=== PATIENT | female | born 1950 | race Caucasian/White ===

== ENCOUNTER 2016-08-10 13:43 | Inpatient (IN) | payer BC, MEDICARE ==
[~2016-08-10] VITALS: Ht 152.4 cm; Wt 111.6 kg
--- NOTE | 2016-08-10 14:55 | EKG ---
[facility] [address] [place] [address] Test Date: 2016-08-10 Test Time: 13:51:42 Pat Name: LEANNE MADISON Department: Room: Gender: F [employer] Mechanical: : [id number] Requested By: Saadia BECKER Order Number: [id number] Reading MD: Measurements Intervals [place] Rate: 103 P: 21 IL: 128 QRS: 23 QRSD: 84 T: 15 QT: 360 QTc: 474 Interpretive Statements SINUS TACHYCARDIA OTHERWISE NORMAL ECG RI6.01 No previous ECG available for comparison
[2016-08-10 15:09] LABS: BASO % 0 % (0-3); EOS % 1 % (0-3); HEMATOCRIT 37.9 % (36.0-47.0); HEMOGLOBIN 12.5 g/dL (12.0-15.5); LYMPH # 2.1 x10^3/uL (1.0-4.8); LYMPH % 26 % (24-48); MEAN CORPUSCULAR HEMOGLOBIN 29 pg (25-35); MEAN CORPUSCULAR HGB CONC 33 g/dL (31-37); MEAN CORPUSCULAR VOLUME 87 fL (79-100); MONO % 3 % (0-9); NEUT % 70 % (31-73); PLATELET COUNT 291 x10^3/uL (140-400); RED BLOOD COUNT 4.34 x10^6/uL (3.50-5.40); WHITE BLOOD COUNT 7.9 x10^3/uL (4.0-11.0)
[2016-08-10 15:42] LABS: CALCIUM 8.7 mg/dL (8.5-10.1); CREATININE 0.8 mg/dL (0.6-1.0); GFR 71.8; POTASSIUM 3.9 mmol/L (3.5-5.1)
--- NOTE | 2016-08-10 15:50 | RAD ---
INDICATION: chest pain COMPARISON: 12/08/2015 FINDINGS: 2 views of chest obtained. Degenerative changes of the spine. Cardiac silhouette is borderline in size. No focal airspace consolidation or edema. IMPRESSION: No definite focal airspace consolidation.
--- NOTE | 2016-08-10 16:16 | PHYS DOC ---
Past Medical History Additional Past Medical Histor: PreDiabetes Past Surgical History: Hysterectomy, Other Additional Past Surgical Histo: BILATERAL KNEE REPLACEMENT Smoking: Cigarettes Alcohol Use: Occasionally Drug Use: None Adult General Chief Complaint Chief Complaint: SHORTNESS OF BREATH HPI HPI Patient is a 66 year old female who presents with left central chest pain that radiates into her left jaw, face, and left upper extremity over the past 3 days. States she has been having this sensation intermittently over the past weeks. She notes fluctuations of intensity over the past 3 days, but is otherwise been constant. States she is supposed to get a heart catheterization tomorrow. She states she continues to have some difficulty breathing that has been worked up over the past multiple months; this symptom is unchanged from prior evaluations by her PCP. She denies back pain, orthopnea, leg pain or swelling, hemoptysis, cough, abdominal pain, nausea or vomiting, fever or chills. She denies numbness, tingling, weakness, dizziness. Review of Systems Review of Systems Constitutional: Denies fever or chills [] Eyes: Denies change in visual acuity, redness, or eye pain [] HENT: Denies nasal congestion or sore throat [] Respiratory: Denies cough [] Cardiovascular: No additional information not addressed in HPI [] GI: Denies abdominal pain, nausea, vomiting, bloody stools or diarrhea [] : Denies dysuria or hematuria [] Musculoskeletal: Denies back pain or joint pain [] Integument: Denies rash or skin lesions [] Neurologic: Denies headache, focal weakness or sensory changes [] Endocrine: Denies polyuria or polydipsia [] Allergies Allergies Allergies Coded Allergies Type Severity Reaction Last Updated Verified naproxen Allergy Mild Hives 08/03/16 Yes Physical Exam Physical Exam Constitutional: Well developed, well nourished, no acute distress, non-toxic appearance. [] HENT: Normocephalic, atraumatic, bilateral external ears normal, oropharynx moist, no oral exudates, nose normal. [] Eyes: PERRLA, EOMI. [] Neck: Normal range of motion, no tenderness, supple, no stridor. [] Cardiovascular:Heart rate regular rhythm [] Lungs & Thorax: Bilateral breath sounds clear to auscultation [] Abdomen: Bowel sounds normal, soft, no tenderness. [] Skin: Warm, dry, no erythema, no rash. [] Back: No tenderness, no CVA tenderness. [] Extremities: No tenderness, ROM intact, no edema. [] Neurologic: Alert and oriented X 3, normal motor function, normal sensory function, no focal deficits noted. [] Psychologic: Affect normal, judgement normal, mood normal. [] Current Patient Data Vital Signs Vital Signs Date Time Temp Pulse Resp B/P Pulse Ox O2 Delivery O2 Flow Rate FiO2 08/10/16 15:40 86 22 132/63 99 Room Air 08/10/16 13:45 97.8 97.8 Lab Values Laboratory Tests Test 08/10/16 15:05 White Blood Count 7.9x10^3/uL (4.0-11.0) Red Blood Count 4.34x10^6/uL (3.50-5.40) Hemoglobin 12.5g/dL (12.0-15.5) Hematocrit 37.9% (36.0-47.0) Mean Corpuscular Volume 87fL (79-100) Mean Corpuscular Hemoglobin 29pg (25-35) Mean Corpuscular Hemoglobin Concent 33g/dL (31-37) Red Cell Distribution Width 15.0% (11.5-14.5) H Platelet Count 291x10^3/uL (140-400) Neutrophils (%) (Auto) 70% (31-73) Lymphocytes (%) (Auto) 26% (24-48) Monocytes (%) (Auto) 3% (0-9) Eosinophils (%) (Auto) 1% (0-3) Basophils (%) (Auto) 0% (0-3) Neutrophils # (Auto) 5.5x10^3uL (1.8-7.7) Lymphocytes # (Auto) 2.1x10^3/uL (1.0-4.8) Monocytes # (Auto) 0.3x10^3/uL (0.0-1.1) Eosinophils # (Auto) 0.0x10^3/uL (0.0-0.7) Basophils # (Auto) 0.0x10^3/uL (0.0-0.2) Sodium Level 144mmol/L (136-145) Potassium Level 3.9mmol/L (3.5-5.1) Chloride Level 106mmol/L (98-107) Carbon Dioxide Level 29mmol/L (21-32) Anion Gap 9 (6-14) Blood Urea Nitrogen 11mg/dL (7-20) Creatinine 0.8mg/dL (0.6-1.0) Estimated GFR (Cockcroft-Gault) 71.8 Glucose Level 97mg/dL (70-99) Calcium Level 8.7mg/dL (8.5-10.1) Troponin I Quantitative < 0.017ng/mL (0.000-0.055) UD-Gzj-C-Type Natriuretic Peptide 81pg/mL (0-124) Laboratory Tests 08/10/16 15:05 Laboratory Tests 08/10/16 15:05 EKG EKG EKG as interpreted by me as sinus tachycardia, rate 103, no ST-T changes, MD 128 , QTc 474, no ectopy Radiology/Procedures Radiology/Procedures Chest xray as interpreted by me with no acute cardiopulmonary disease process Course & Med Decision Making Course & Med Decision Making Pertinent Labs and Imaging studies reviewed. (See chart for details) Workup is unremarkable. She does not feel comfortable going home with chest pain like this. I discussed case with Dr. Espinosa, who agrees with admission for ACS rule out. Dragon Disclaimer Dragon Disclaimer This electronic medical record was generated, in whole or in part, using a voice recognition dictation system. Departure Departure Impression: Primary Impression: Chest pain Additional Impression: Dyspnea on exertion Disposition: ADMITTED INPATIENT Condition: STABLE Referrals: BRANDON ESPINOSA MD (PCP) Scripts No Active Prescriptions or Reported Meds Problem Qualifiers Primary Impression: Chest pain Chest pain type: other chest pain Qualified Code: R07.89 - Other chest pain Saadia BECKER MD Aug 10, 2016 16:16
[2016-08-10] MEDS ORDERED: ONDANSETRON PF 4 MG/2 ML VIAL. IV PRN (16:30)
[2016-08-10] MEDS ORDERED: NITROGLYCERIN SUBLINGUAL 0.4 MG BOTTLE OF 25. SL PRN (16:30)
[2016-08-10] MEDS ORDERED: MORPHINE SULFATE 2 MG/ML DISP.SYRIN. IV PRN (16:30)
[2016-08-10] MEDS ORDERED: ACETAMINOPHEN 325 MG TABLET. PO PRN (16:30)
--- NOTE | 2016-08-10 18:11 | ACF ---
Admission Forms Criteria CHEST PAIN Clinical Indications for Admission to Inpatient Care (Place 'X' for any and all applicable criteria): Admission is indicated for chest pain and ANY ONE of the following(1)(2)(3)(4)(5 ): [ ]I. Angina with acute coronary syndrome (Also use Myocardial Infarction or Angina guideline) [ ]II. Hemodynamic instability [ ]III. Angina needing acute intervention as indicated by ALL of the following( 11)(12): [ ]a) Unstable angina is present as indicated by angina that is ANY ONE of the following: [ ]i) New onset [ ]ii) Nocturnal [ ]iii) Prolonged at rest [ ]iv) Progressive [ ]b) Angina warrants acute intervention as indicated by ANY ONE of the following: [ ]i) Recurrent angina (e.g, not responding as previously to treatment) [ ]ii) Angina at rest or with low-level activities despite initial medical therapy [ ]iii) New or presumably new ST-segment depression on ECG [ ]iv) Signs or symptoms of heart failure (eg, dyspnea, pulmonary edema) [ ]v) New or worsening mitral regurgitation [ ]vi) Hemodynamic instability [ ]vii) Dangerous arrhythmia (eg, sustained ventricular tachycardia) [ ]viii) History of percutaneous coronary intervention within 6 months [ ]ix) History of coronary artery bypass graft surgery [ ]x) ELEAZAR risk score of 2 or greater[A] [ ]xi) History of Diabetes(14) [ ]xii) High-risk cardiac ischemia findings on noninvasive testing (e.g, echocardiogram, treadmill testing, nuclear scan) [ ]xiii) Chronic renal insufficiency (ie, estimated GFR less than 60 mL/min/1.732m) [ ]xiv) Left ventricular ejection fraction less than 40% [ ]IV. Evidence of NV (eg, cardiac biomarkers positive, ST-segment elevation on ECG) also use Myocardial Infarction Criteria Form. [ ]V. Pulmonary edema [ ]. Respiratory distress [ ]VII. Chest pain indicative of serious diagnosis other than coronary artery disease (eg, aortic dissection) [ ]VIII. Contraindications and/or Inappropriate clinical situations for Observational Care in patients with Chest Pain, when ANY ONE of the following is required: [ ]a) Patient with risk factor for pulmonary embolism, acute coronary syndrome and myocardial infarction (18) [ ]b) Patient with Pulmonary embolism require an average LOS of 4.3 days, therefore emergency department observation management is inappropriate 18,23 [ ]c) Painful condition/s in the elderly, have the highest rate of recidivism after emergency department observation management (10.8%) 20,21,22 [ ]d) Elevated cardiac biomarker requires intensive and exhaustive care (19) [X]IX. General contraindications and/or Inappropriate clinical situations for Observational Care in patients with Chest Pain, when ANY ONE of the following is required: [X]a) Prediction of prolongation of LOS based on ANY ONE of the following may be considered as a contraindication for observational care 2, 3, 4, 5, 6, 7, 8, 9, 10, 11 [ ]i) Age > 65 yrs. [ ]ii) Patient arriving by ambulance [ ]iii) Patient with high acuity [X]iv) Patient requiring vital sign monitoring [ ]v) Patient on IV medication [ ]b) Systolic blood pressures 180mmHg 3,12 [ ]c) Patient with altered mental status including delirium and other alteration of consciousness, (3) [ ]d) Patient whose discharge disposition will be to a nursing home home or rehabilitation home should not be managed in Emergency Department Observation Unit. CMS rule requires 3 days hospital stay before such placement. 3,13 [ ]e) Patient with failure to thrive due to broad array of etiologies 3,16,17 [ ]f) Inability to ambulate 3,14 Extended stay beyond goal length of stay may be needed for (1)(28): [ ]a) Specific condition diagnosed after evaluation (eg, pulmonary embolism, aortic dissection) [ ]b) Unstable angina [ ]c) Continued suspicion of acute coronary syndrome with inability to complete needed cardiac evaluation (eg, patient clinically unable to undergo stress testing) [ ]d) Myocardial infarction (Contents from ANGINA and CHEST PAIN clinical indications for admission to inpatient care have been integrated in this form) The original [facility] content created by [employer] has been revised. The portions of the content which have been revised are identified through the use of italic text or in bold, and [facility] has neither reviewed nor approved the modified material. All other unmodified content is copyright [facility]. Please see references footnoted in the original [facility] edition 2016 Admission Criteria Met?: Yes BIBI CEJA Aug 10, 2016 18:11
[2016-08-10 20:35] VITALS: BP 141/67
[2016-08-10] MEDS ORDERED: NITR0.4T6 SL (21:19)
[2016-08-10] MEDS ORDERED: CONTRAST GIVEN MC PRN (22:15)
[2016-08-10] MEDS ORDERED: IOHEXOL 350 MG/ML 100ML VIAL. IV ONE (22:30)
--- NOTE | 2016-08-10 22:51 | RAD ---
PROCEDURE CT angiogram of the chest with intravenous contrast. HISTORY Severe chest pain since the morning. Cough and shortness of air. Evaluate for dissection. TECHNIQUE After administration of intravenous contrast, 75 mL Omnipaque 350, CT angiogram of the chest with attention the aorta was performed. Axial 2D reconstructions were obtained. Sagittal and coronal 3D MIPS were obtained. Rotating volume rendered 3D reconstructions of the aorta were also obtained. COMPARISON None. FINDINGS There is appropriate opacification of the aorta. There is motion artifact seen involving the ascending aorta. No dissection is identified. No aortic aneurysm is seen. At the sino-tubular ridge, ascending aorta has diameter of 2.3 centimeters. Mid ascending thoracic aorta has diameter of 2.8 centimeters. The aortic arch at the origin of the left subclavian artery has diameter of 2.1 centimeters. Descending thoracic aorta has a diameter of 2.0 centimeters. No significant aortic or coronary artery atherosclerosis is seen. Visualized thyroid is symmetric. Trachea and mainstem bronchi appear patent. No mediastinal lymphadenopathy is identified. Heart and pericardium are unremarkable. No pneumothorax or pleural effusion is seen. No acute airspace disease identified. Images both upper abdomen demonstrate fatty liver disease. Mild degeneration is present in spine. IMPRESSION 1. The ascending aorta demonstrates motion artifact. There is no evidence of thoracic aortic aneurysm or dissection. 2. No acute abnormality identified in the chest. Electronically signed by: Elder Muñoz MD (Aug 10, 2016 22:50:47)
[2016-08-10 23:15] VITALS: BP 145/57
[2016-08-10] MEDS: IV NORMAL SALINE 1000ML BAG 1,000 ML IV SCH (23:36)
--- NOTE | 2016-08-11 01:09 | HP ---
ADMIT DATE: 08/10/2016 HISTORY OF PRESENT ILLNESS: This is a 66-year-old white female who I saw for the first time in my office last week. She came in complaining of left-sided chest pain. She said that she had had this left-sided chest pain for at least the last 5 years. They were very few and far between. Recently, it started to get more often. That is the reason why she went and saw ____ for the first time about 2 weeks ago. She did not seek medical attention prior to that. While in . ____ office, she started to have chest pain. An EKG was taken. This was faxed over. There were inverted T waves in 1 and aVL. These inverted T waves were fairly prominent at about 4-5 mm. When I saw her in the office about a week ago, she complained of intermittent chest pain. She was not having any pain when she was in my office. An EKG was normal. Yesterday while she was at work, she started to have the chest pain. The ambulance was called. By the time the ambulance came, the pain had started to subside. An EKG was taken by the ambulance personnel, which was again normal. This pain starts in the left infraclavicular area. It then goes over her shoulder to the back and down her left arm. There is no associated diaphoresis. There is no shortness of breath. When she has the pain, she is not able to continue to do what she is doing and she works for a call center. She normally just sits and waits for the pain to go away and it normally goes away in about 10-15 minutes. I had given her a tablet of nitroglycerin. The first time she took it, she was at work and felt very poorly and resistant to take it. I then told her to take it when she is at home and be able to sit down or lie down when she has the pain. I also asked her to make a diary of the onset of pain and when she takes the nitroglycerin and how long the pain lasts after she takes the nitroglycerin. I told her this yesterday. She has not had a chance to keep the diary. She did undergo a myocardial perfusion imaging study last Sunday, which was the 10th. The MPI was normal and the EF was normal. I consider coronary artery spasm because the MPI was normal and she had definite EKG changes with the chest pain. I did discuss coronary arteriograms to be sure. This is because she has risk factors of prediabetes and smoking. She gives no history of hypertension. Her hemoglobin A1c is mildly elevated to 6.2 and she thus probably has prediabetes. There is no history of diabetes mellitus. A recent lipid level showed LDL cholesterol of 102, but the HDL was good at 78 and the triglycerides are within normal limits. She thus does not have significant dyslipidemia. She had smoked 2 packs of cigarettes a day several years ago for 10 years. She then stopped smoking several years ago and about 3-4 years ago, took up smoking again, but now she smokes 1 pack that lasts her 3 days. She takes alcohol only occasionally. In the past, she has had abdominal surgery. FAMILY HISTORY: Not significant. There is no family history of myocardial infarction, stents, coronary artery bypass surgery. Her father of congestive heart failure. PHYSICAL EXAMINATION: GENERAL: She was in no distress. When I saw her this evening, she was in pain. VITAL SIGNS: The heart rate was 80 per minute and regular. The blood pressure was 140/80. LUNGS: Clear. HEART: The heart sounds are normal with no murmur or gallop. There is no local tenderness. ABDOMEN: Soft. LABORATORY DATA: An EKG was normal. The CK normal despite the prolonged episode of pain that she has had since 6:00 a.m. this morning, which has been intermittent. It comes on for about 10-15 minutes and goes away for 10-15 minutes only to come back. This is the first time she has had such a prolonged episode of pain that has been recurrent. The pulses are palpable in both sides. The abdomen is soft. There is no edema. The distal pulses are palpable. A chest x-ray showed a normal size heart and clear lung sarmiento. The BUN was 11, creatinine was 0.8. As stated before, the troponin despite a prolonged episode of pain for about 9 hours intermittently was only 0.017. IMPRESSION: 1. Left-sided chest pain with EKG changes, consider coronary artery spasm. 2. Consider fixed coronary artery disease that I doubt. 3. Prediabetes. 4. Obesity. PLAN: She will undergo coronary arteriograms tomorrow by Dr. Dacosta. I talked to Dr. Dacosta about possibly doing again a vein stimulation test if her coronary arteries are normal. He has agreed to the concept. This will tell us if she is indeed having coronary artery spasm and help us to work towards that and not seek for other answers for the pain. Tonight, we will be getting a CT scan to be sure. We will get an echocardiogram in the morning. She will be given 75 mL of iodine for the CT scan at about 11:00 p.m. and she will undergo coronary arteriograms 12 hours later, but we will keep her hydrated in the meantime. BRANDON ESPINOSA MD DR: SHAINA/alejandrina JOB#: [id number] / [id number]
[2016-08-11 03:20] VITALS: BP 135/60
[2016-08-11 07:25] VITALS: BP 131/62
[2016-08-11] MEDS: IV NORMAL SALINE 1000ML BAG 1,000 ML IV SCH (08:00)
--- NOTE | 2016-08-11 08:20 | RAD ---
INDICATION: Leg swelling COMPARISON: None. TECHNIQUE: Grayscale, color and spectral doppler ultrasound images were obtained of the bilateral lower extremity venous vasculature. RIGHT: No thrombus identified in the common femoral vein, femoral vein, popliteal vein or visualized calf veins. LEFT: No thrombus identified in the common femoral vein, femoral vein, popliteal vein or visualized calf veins. IMPRESSION: 1. No thrombus identified in deep venous system of bilateral lower extremities.
--- NOTE | 2016-08-11 08:24 | RAD ---
INDICATION: Chest and upper abdominal pain. COMPARISON: None. TECHNIQUE: Grayscale and color ultrasound images obtained through the abdomen. FINDINGS: Aorta/IVC: Partially visualized without gross aneurysm. Pancreas: Poorly seen Liver: Echogenic Gallbladder: No definite stones or wall thickening. Common Bile Duct: Not dilated. Right Kidney: No hydronephrosis. Left Kidney: No hydronephrosis. Spleen: Unremarkable. IMPRESSION: No bile duct dilation. The liver is borderline echogenic. Nonspecific but can be seen with fatty infiltration.
--- NOTE | 2016-08-11 12:42 | PDOC ---
MODERATE SEDATION ASSESSMENT RISKS/ALTERNATIVES Risks/Alternatives Risks and alternatives of this type of sedation and procedure discussed with: RISK/ALTERNATIVES: Patient H & P ON CHART H & P H & P on chart and reviewed for co-morbid conditions and appropriate labs. H&P ON CHART: Yes STATUS PREG STATUS ASSESSED: Yes MEDS/ALLERGIES REVIEWED Meds/Allergies Reviewed Medications and Allergies including time and route of recently administered narcotics and sedatives. MEDS/ALLERGIES REVIEWED: Yes ASA RATING ASA RATING: II AIRWAY ASSESSMENT Airway Assessment Airway patency, oral function limitations, presence of caps, crowns, dentures, partials, and ability to extend neck assessed. AIRWAY ASSESSMENT: Yes MALLAMPATI SCORE MALLAMPATI SCORE: II PRE-SEDATION ASSESSMENT PRE-SEDATION ASSESSMENT: Yes HENRRY NAVA MD Aug 11, 2016 12:42
[2016-08-11] MEDS ORDERED: FENTANYL PF 250 MCG/5 ML VIAL. IV ONE (12:45)
[2016-08-11] MEDS ORDERED: MIDAZOLAM HCL/PF 5 MG/5 ML VIAL IV ONE (12:45)
[2016-08-11] MEDS ORDERED: IODIXANOL 320 MG/ML 100 ML VIAL. IART ONE (13:00)
[2016-08-11] MEDS ORDERED: LIDOCAINE 2% 20 ML VIAL. IJ ONE (13:00)
[2016-08-11 13:06] VITALS: BP 129/68
--- NOTE | 2016-08-11 14:46 | CARD ---
APPROVED REPORT Procedure(s) performed: left heart cath HISTORY : The patient is a 66 year-old female with a history of . INDICATION The indication(s) include : chest pain, abnormal ECG. CASE TECHNIQUE The patient was brought electively into the cardiac catheterization lab. A timeout was performed conf irming the patient's name, date of , procedure, and site of procedure. All necessary parties wer e wearing the appropriate personal protective equipment and radiation monitoring devices. After expla ining the risks and benefits of the procedure, informed consent was obtained.(See nursing notes for m edications administered). The right groin was sterilely prepped and draped. The right femoral groin w as infiltrated with 2% Lidocaine subcutaneous anesthesia. During this case, Fluoroscopy and low osmol ar contrast were used for imaging. A sheath was inserted into the right femoral artery without diffic ulty. Coronary angiography was performed using coronary diagnostic catheters. The left coronary syste m was accessed and visualized with a Diagnostic catheter. The right coronary system was accessed and visualized with a Diagnostic catheter. The left ventricle was accessed and visualized with a Diagnost ic catheter. Left ventricular/Aortic Valve gradient assessed on pullback. Left ventriculogram was per formed in DONNELLY projection. Pre-demployment femoral angiogram was performed . Closure device was deploy ed with a Angioseal without any complications. The patient tolerated the procedure well and there wer e no complications associated with the procedure. Coronary Angiography The patient's coronary anatomy is right dominant. The left main coronary artery is a large size vessel free of disease. The left main trifurcates to th e left anterior descending, circumflex, and ramus. The left anterior descending artery is a large size vessel free of disease. The first diagonal branch is a small size vessel free of disease. The second diagonal branch is a small size vessel free of di sease. The third diagonal branch is a small size vessel free of disease. The circumflex artery is a medium size vessel free of disease. The first obtuse marginal branch is a medium size vessel free of disease. The second obtuse marginal branch is a small size vessel free of disease. The ramus intermedius artery is a medium size vessel free of disease. The right coronary artery is a large size vessel free of disease. The right posterior descending chepe ry is a medium size vessel free of disease. The right posterolateral branch is a small size vessel fr ee of disease. Left Ventriculography The left ventricle is normal in size with normal contractility. The left ventricular ejection fractio n is estimated to be 65%. The left ventricular end diastolic pressure is 12 mmHg. There was no gradie nt across the aortic valve upon pullback. Conclusion This pt has no CAD and there was no evidence of coronary spasm. Further work up and treatment as per Dr Simpson
[2016-08-11 15:12] VITALS: BP 154/94
[2016-08-11 19:15] VITALS: BP 156/68
--- NOTE | 2016-08-11 20:48 | PDOC ---
Provider Note Provider Note The coronary arteries are normal. CT scan of the chest showed no intra-thoracic abnormality that would explain the chest pain. No DVT and thus pulmonary embolism is unlikely. Gallbladder sonogram was negative. Obtain MRI of the shoulder tomorrow. An ergonovine stimulation test was planned but no ergonovine was available. Willreview echocardiogram. The patient states that after the echocardiogram the pain recurred. The pain that she's been experiencing is probably muscular pain though it's difficult to explain the EKG changes that was demonstrated at her PCPs office. Will treat as for coronary artery spasm and probably discharge tomorrow. BRANDON ESPINOSA MD Aug 11, 2016 20:48
[2016-08-11] MEDS: HYDROCODONE/APAP 5/325MG TABLET. PO PRN (21:55)
[2016-08-11] MEDS ORDERED: NIFEDIPINE ER 30 MG TAB.ER.24H PO SCH (22:00)
[2016-08-11] MEDS ORDERED: ATORVASTATIN CALCIUM 20 MG TABLET PO SCH (22:00)
[2016-08-11 23:09] VITALS: BP 114/61
[2016-08-12 07:27] VITALS: BP 142/65
[2016-08-12] MEDS: HYDROCODONE/APAP 5/325MG TABLET. PO PRN (08:26)
[2016-08-12] MEDS ORDERED: ISOSORBIDE MONONITRATE ER 30 MG TAB.ER.24H PO SCH (09:00)
--- NOTE | 2016-08-12 09:59 | RAD ---
PROCEDURE MRI left shoulder without contrast dated 08/11/2016. HISTORY Left shoulder and chest pain for 5 years. Worsening over the last 6 months. No known injury. TECHNIQUE Routine multiplanar multisequence MR imaging left shoulder performed. No contrast administered. COMPARISON None. FINDINGS Intermediate T2 signal and thickening of the supraspinatus and infra spinatus portions of the cuff. There is a small articular surface partial tear of the anterior supraspinatus footplate that measures about 5 millimeters in size and extends roughly 60-70 percent thickness. No full thickness tear or cuff retraction. There is also interstitial partial thickness tearing of the infra spinatus footplate there is involve 60-70 percent cuff thickness. Subscapularis is grossly intact. Mild hypertrophic change of the acromioclavicular joint. Mild undersurface spurring of the acromion. Trace amount of subacromial/subdeltoid bursal fluid. Acromion type 2 morphology. Mild increased signal within the substance of the long head biceps tendon proximally. Extra-articular portion courses within the bicipital groove. Biceps anchor intact. Glenoid labrum is limited in evaluation due to poor signal. There is some linear increased signal through the posterior labrum at its mid substance. There is also blunted morphology of the anterior inferior labrum. Mild hypertrophic change at the joint. No significant joint effusion or loose body. No definite glenoid cartilage defect. IMPRESSION - Moderate to severe rotator cuff tendinopathy with partial thickness tearing of the supraspinatus and infra spinatus tendon footplate as described above. No full-thickness tear or cuff retraction. - Moderate AC joint arthropathy with mild undersurface spurring. - Mild proximal biceps tendinosis. - Suspect small posterior labral tear. - Mild degenerative change of the glenohumeral joint. Electronically signed by: Elder Rose (Aug 12, 2016 09:57:06)
[2016-08-12 10:11] VITALS: BP 96/53
[2016-08-12 10:33] VITALS: BP 116/56
--- NOTE | 2016-08-12 10:41 | CARD ---
APPROVED REPORT EXAM: Two-dimensional and M-mode echocardiogram with Doppler and color Doppler. Other Information Quality : Good INDICATION Cardiomegaly 2D DIMENSIONS RVDd2.6 (2.9-3.5cm)Left Atrium(2D)3.4 (1.6-4.0cm) IVSd1.1 (0.7-1.1cm)Aortic Root(2D)2.8 (2.0-3.7cm) LVDd4.2 (3.9-5.9cm)LVOT Diameter2.0 (1.8-2.4cm) PWd1.1 (0.7-1.1cm)LVDs3.0 (2.5-4.0cm) FS (%) 29.0 %SV43.8 ml LVEF(%)56.1 (>50%) Aortic Valve AoV Peak Barber.146.4cm/sAoV VTI30.1cm AO Peak GR.8.6mmHgLVOT Peak Barber.109.9cm/s AO Mean GR.5mmHgAVA (VMAX)2.29cm2 CAORLINE (VTI)2.50cm2 Mitral Valve MV E Wyfqwvhb92.9cm/sMV DECEL WBXY554bz MV A Iuegkmrg715.2cm/sE/A Ratio0.7 Tricuspid Valve TR P. Xzlfrbix405yv/sRAP XOODHFSO8yxGr TR Peak Gr.64ugXcEJOU77nxBp Pulmonary Vein S1 Xoebotjf96.7cm/sD2 Poklganq45.3cm/s PVa znatzbxf041yehj LEFT VENTRICLE The left ventricle is normal size. There is normal left ventricular wall thickness. The left ventricu lar systolic function is normal and the ejection fraction is within normal range. The Ejection Fracti on is 55-60%. There is normal LV segmental wall motion. Transmitral Doppler flow pattern is Grade I-a bnormal relaxation pattern. RIGHT VENTRICLE The right ventricle is normal size. The right ventricular systolic function is normal. ATRIA The left atrium size is normal. The right atrium size is normal. The interatrial septum is intact wit h no evidence for an atrial septal defect or patent foramen ovale as noted on 2-D or Doppler imaging. AORTIC VALVE The aortic valve is normal in structure and function. Doppler and Color Flow revealed no significant aortic regurgitation. There is no significant aortic valvular stenosis. MITRAL VALVE The mitral valve is normal in structure and function. There is no evidence of mitral valve prolapse. There is no mitral valve stenosis. Doppler and Color-flow revealed trace mitral regurgitation. TRICUSPID VALVE The tricuspid valve is normal in structure and function. Doppler and Color Flow revealed mild tricusp id regurgitation. The PA pressure was estimated at 28 mmHg. There is no tricuspid valve stenosis. PULMONIC VALVE The pulmonary valve is normal in structure and function. Doppler and Color Flow revealed no pulmonic valvular regurgitation. There is no pulmonic valvular stenosis. GREAT VESSELS The aortic root is normal in size. The ascending aorta is normal in size. The IVC is normal in size a nd collapses >50% with inspiration. PERICARDIAL EFFUSION There is no evidence of significant pericardial effusion. Critical Notification Critical Value: No <Conclusion> The left ventricle is normal size. There is normal left ventricular wall thickness .The systolic function is normal with an ejection fraction of 60%. There is a Grade I diastolic dysfunction There is no evidence of significant pericardial effusion. There is no mitral stenosis and a trace mitral regurgitation. T5he lsft atrium is of a normal size. There is no aortic stenosis or regurgitation The right ventricle is of a normal size with normal systolic function Doppler and Color Flow revealed mild tricuspid regurgitation. The PA pressure was estimated at 28 mmHg. The pulmonic valve is normal.
[2016-08-12] MEDS ORDERED: NIFE30TA2 PO (12:45)
[2016-08-12] MEDS ORDERED: ATOR20TA58 PO (12:46)
[2016-08-12] MEDS ORDERED: OXYC-323 PO (12:47)
--- NOTE | 2016-08-12 21:38 | DS ---
DATE OF DISCHARGE: 08/12/2016 This is a 66-year-old white female who came into the Emergency Room with severe left infraclavicular pain, radiating down her left arm. She had had it off and on for several hours. Despite that, her EKG was normal and cardiac enzymes were negative. Because of the persistent and continued pain, she was hospitalized. She underwent a CT scan of the chest to determine if there is any cause of the pain and the CT chest was negative. Gallbladder sonogram was negative. There was no DVT and so pulmonary embolism was unlikely. She underwent coronary arteriograms the next day, which was the . The coronary arteries were totally normal. There was plan to do ergonovine stimulation test to see if this is coronary artery spasm. However, ergonovine was not available in the hospital. Thus, it was not performed. She underwent MRI of the shoulder, again to look for other possible causes of the pain. The report was as follows: Fxixtkxr-tc-totvks rotator cuff tendonopathy with partial thickness tearing of the supraspinatus and infraspinatus tendon, footplate, no full thickness tear or cuff retraction. There was moderate AC joint arthropathy with mild undersurface spurring. Mild proximal biceps tendonosis. Suspect small posterior labral tear. Mild degenerative change of the glenohumeral joint. Thus, even though she had full movement of her left shoulder, there was a definite rotator cuff tear. The pain that she is experiencing is probably due to that. However, we cannot explain the EKG changes that were seen in office when she was having the pain. She could thus be having two conditions and she probably has coronary artery spasm as well. FINAL DIAGNOSES: 1. Probable coronary artery spasm. 2. Severe left rotator cuff tear. 3. Mild dyslipidemia. 4. Prediabetes. 5. Obesity. HOMEGOING INSTRUCTIONS: She was going to be treated for the possible coronary artery spasm with Procardia XL 30 mg a day. Imdur was given with which she developed a headache and so this was discontinued. Since she has a possible coronary artery spasm and the prediabetes, her lipids should be treated. Her HDL was 109. She was placed on atorvastatin 20 mg a day. 3. Take nitroglycerin as needed. 4. Percocet p.r.n. 5. Follow up with ____ for the left shoulder pain. I will talk to regarding possible left shoulder intraarticular injections. If that takes care of the pain then there is no need for us to consider coronary artery spasm. The patient and the son are anxious to come to a decision and were asking about doing the ergonovine stimulation test. BRANDON ESPINOSA MD DR: SHAINA/alejandrina JOB#: [id number] / [id number]
== END 2016-08-12 13:00 | disposition home or self-care (01) | DRG 287 ==
LOC: ER 13:43 → ED HOLD 16:15 → 2 SOUTH 20:10
PROVIDERS: ADMIT Specialist; ATTEND Specialist
PROC: 4A023N7 Measurement of Cardiac Sampling and Pressure, Left Heart, Percutaneous Approach (ICD-10-PCS; principal; 2016-08-11)
PROC: B2111ZZ Fluoroscopy of Multiple Coronary Arteries using Low Osmolar Contrast (ICD-10-PCS; 2016-08-11)
PROC: B2151ZZ Fluoroscopy of Left Heart using Low Osmolar Contrast (ICD-10-PCS; 2016-08-11)
DX: I20.1 Angina pectoris with documented spasm (principal); Z68.42 Body mass index [BMI] 45.0-49.9, adult; E66.9 Obesity, unspecified; E78.5 Hyperlipidemia, unspecified; F17.210 Nicotine dependence, cigarettes, uncomplicated; M75.102 Unspecified rotator cuff tear or rupture of left shoulder, not specified as traumatic; R73.03 Prediabetes; Z96.653 Presence of artificial knee joint, bilateral; Z82.49 Family history of ischemic heart disease and other diseases of the circulatory system; Z90.710 Acquired absence of both cervix and uterus; Z88.8 Allergy status to other drugs, medicaments and biological substances
CPT/HCPCS: 36415; 71020; 71275; 73221; 76700; 80048; 83735; 83880; 84484; 85027; 93005; 93306; 93458; 93970; C1769; C1771; C1892; G0269; J2250; J2270; J3010; J7030; Q9967; 99285-25

== ENCOUNTER → 2018-08-30 | Outpatient (CLI) | payer BC, MEDICARE ==
[~2018-08-30] MED LIST: ATOR20TA58 PO; IOHEXOL 350 MG/ML 100 ML VIAL. IV ONE; NIFE30TA2 PO; NITR0.4T22 SL; OXYC1TAB15 PO
[2018-08-30 09:19] LABS: CREATININE 0.8 mg/dL (0.6-1.0); GFR 71.3
--- NOTE | 2018-08-30 13:23 | RAD ---
PQRS Compliance statement: One or more of the following individualized dose reduction techniques were utilized for this examination: 1. Automated exposure control. 2. Adjustment of the mA and/or kV according to patient size. 3. Use of iterative reconstruction technique. Indication:THROMBOLYTIC DISEASE AND ILD. PE PROTOCOL PER OFFICE INJ 100ML OMNI 350 PREV SENT TECHNIQUE: CT angiogram of the chest with IV contrast with multiplanar MIP reformats. COMPARISON: 08/10/2016 FINDINGS: Heart is normal in size. No pericardial or pleural effusion. Slightly suboptimal PE study due to contrast bolus timing. No central or segmental filling defects in the pulmonary arteries. Evaluation of distal most subsegmental branches is limited. Clear neck base. No enlarged axillary, mediastinal or hilar adenopathy. Central airways are patent. No interstitial abnormalities, honeycombing or focal consolidation in the lungs. No emphysema. Visualized sections through the liver, spleen, gallbladder, pancreas, adrenals and kidneys within normal limits. No suspicious bony lesion. IMPRESSION: 1. Slightly suboptimal PE study due to contrast bolus timing. No central, segmental or proximal subsegmental PE. 2. Lungs are clear without imaging evidence of interstitial lung disease. Electronically signed by: Anselmo Bennett DO (08/30/2018 1:19 PM) [id number]
== END | disposition home or self-care (01) ==
LOC: CT 07:00
PROVIDERS: ATTEND Internal Medicine Critical Care Medicine
DX: I82.90 Acute embolism and thrombosis of unspecified vein (principal)
CPT/HCPCS: 36415; 71275; 82565; 84520; Q9967

== ENCOUNTER → 2018-09-09 | Outpatient (CLI) | payer BC, MEDICARE ==
[~2018-09-09] MED LIST changes: -IOHEXOL 350 MG/ML 100 ML VIAL. IV ONE
--- NOTE | 2018-09-11 13:15 | SLEEP ---
DATE OF STUDY: 09/09/2018 ATTENDING PHYSICIAN: Angela Huber MD INDICATIONS: The patient is 68 years old who weighs 260 pounds with a BMI of 51. The patient's [place] score was 11. The patient underwent diagnostic sleep study at [facility]. INTERPRETATION: During the night study, the patient spent 426 minutes in bed and slept for 368 minutes with a sleep efficiency of 86%. Sleep latency was 28 minutes with a REM latency of 100 minutes. Overall, sleep architecture showed normal stage 1 sleep, increased stage 2 sleep, normal slow wave and normal REM sleep. During the night study, the patient had 12 obstructive apneas, no mixed or central apneas and 52 hypopneas. The patient's apnea-hypopnea index was 10 per hour, supine index 10 per hour and a REM index of 48 per hour. Nocturnal oximetry study revealed a mean oxygen saturation of 90% with lowest of 77%. 6% of time oxygen saturation remained between 80% and 89% and was predominant during REM sleep. PLMS were not observed. EKG monitoring revealed average heart rate of 85 beats per minute, no sustained arrhythmias observed. Due to low AHI, the patient did not meet the split night criteria for CPAP initiation. IMPRESSION: 1. Mild sleep apnea-hypopnea syndrome with worsening during REM sleep. Total apnea-hypopnea index 10 per hour with a REM apnea-hypopnea index of 48 per hour. 2. Nocturnal hypoxia secondary to obstructive sleep apnea. 3. No clinically significant periodic limb movements during sleep. RECOMMENDATIONS: 1. The patient is clinically symptomatic( [place] score 11). She would benefit from treatment of sleep apnea with either oral appliance as recommended by the dentist versus a trial of CPAP titration. 2. Once the patient is optimally treated, then follow up in 4-6 weeks to assess compliance and to document clinical improvement. 3. Weight loss is strongly advised. 4. Avoid [facility] depressants. 5. Caution regarding driving until symptoms of sleep apnea resolve with the above recommendations. ALBA SNIDER MD DR: KEYLA/alejandrina JOB#: [id number] / [id number] [facility] ANGELA HUBER MD [facility]
== END | disposition home or self-care (01) ==
LOC: SLPLAB 19:14
PROVIDERS: ATTEND Internal Medicine Critical Care Medicine
DX: G47.33 Obstructive sleep apnea (adult) (pediatric) (principal); R09.02 Hypoxemia
CPT/HCPCS: 95810

== ENCOUNTER → 2018-09-18 | Outpatient (CLI) | payer BC, MEDICARE ==
--- NOTE | 2018-09-18 10:41 | CARD ---
MR#: [id number] Date of Study: 09/18/2018 Ordering Physician: ALBA SNIDER, Referring Physician: ALBA SNIDER, Tech: Ashley Del Rio [facility] APPROVED REPORT EXAM: Two-dimensional and M-mode echocardiogram with Doppler and color Doppler. Other Information Quality : AverageHR: 88bpm Rhythm : NSRTechnically limited study due to body habitus. INDICATION Dyspnea RISK FACTORS Obesity 2D DIMENSIONS RVDd3.0 (2.9-3.5cm)Left Atrium(2D)3.7 (1.6-4.0cm) IVSd0.9 (0.7-1.1cm)Aortic Root(2D)2.7 (2.0-3.7cm) LVDd4.7 (3.9-5.9cm)LVOT Diameter2.0 (1.8-2.4cm) PWd1.0 (0.7-1.1cm)LVDs3.4 (2.5-4.0cm) FS (%) 28.2 %SV56.9 ml LVEF(%)54.4 (>50%) M-Mode DIMENSIONS Left Atrium(MM)3.71 (2.5-4.0cm)Aortic Root2.95 (2.2-3.7cm) Aortic Valve AoV Peak Barber.123.1cm/sAoV VTI23.4cm AO Peak GR.6.1mmHgLVOT Peak Barber.97.0cm/s AO Mean GR.3mmHgAVA (VMAX)2.48cm2 CAROLINE (VTI)2.50cm2 Mitral Valve MV E Ipgtbjzq59.2cm/sMV DECEL EXEO711gh MV A Trnhygbl487.4cm/sE/A Ratio0.8 MV A Unkngaaf933so Pulmonary Valve PV Peak Chmfnqwy907.5cm/s Tricuspid Valve TR P. Rghrdajx919vt/sRAP NXKHYNOF5yqQr TR Peak Gr.68msFpDAQV62xaBj LEFT VENTRICLE The left ventricle is normal size. There is normal left ventricular wall thickness. The left ventricu lar systolic function is normal and the ejection fraction is within normal range. The Ejection Fracti on is 55-60%. There is normal LV segmental wall motion. Transmitral Doppler flow pattern is Grade I-a bnormal relaxation pattern. RIGHT VENTRICLE The right ventricle is normal size. There is normal right ventricular wall thickness. The right ventr icular systolic function is normal. ATRIA The left atrium size is normal. The right atrium size is normal. The interatrial septum is intact wit h no evidence for an atrial septal defect or patent foramen ovale as noted on 2-D or Doppler imaging. AORTIC VALVE The aortic valve is normal in structure and function. The aortic valve is trileaflet. Doppler and Col or Flow revealed no significant aortic regurgitation. There is no significant aortic valvular stenosi s. MITRAL VALVE Mitral annular calcification is mild. There is no evidence of mitral valve prolapse. There is no mitr al valve stenosis. Doppler and Color-flow revealed trace mitral regurgitation. TRICUSPID VALVE The tricuspid valve is normal in structure and function. Doppler and Color Flow revealed trace tricus pid regurgitation. The PA pressure was estimated at 22 mmHg. There is no tricuspid valve prolapse or vegetation. There is no tricuspid valve stenosis. PULMONIC VALVE The pulmonic valve is not well visualized. GREAT VESSELS The aortic root is normal in size. The ascending aorta is normal in size. The IVC is normal in size a nd collapses >50% with inspiration. PERICARDIAL EFFUSION There is no evidence of significant pericardial effusion. Critical Notification Critical Value: No <Conclusion> The left ventricular systolic function is normal and the ejection fraction is within normal range. Th e Ejection Fraction is 55-60%. There is normal LV segmental wall motion. Doppler and Color Flow revealed trace tricuspid regurgitation. The PA pressure was estimated at 22 mm Hg. Signed by : Ap Merino, Electronically Approved : 09/18/2018 10:40:39
== END | disposition home or self-care (01) ==
LOC: ECHO 09:41
PROVIDERS: ATTEND Internal Medicine Critical Care Medicine
DX: I05.9 Rheumatic mitral valve disease, unspecified (principal); R06.00 Dyspnea, unspecified; F17.200 Nicotine dependence, unspecified, uncomplicated; Z88.8 Allergy status to other drugs, medicaments and biological substances
CPT/HCPCS: 93306

== ENCOUNTER → 2020-11-23 | Outpatient (CLI) | payer MEDICARE ==
[2020-11-23 15:30] LABS: BASO % 1 % (0-3); EOS % 1 % (0-3); HEMATOCRIT 38.1 % (36.0-47.0); HEMOGLOBIN 12.8 g/dL (12.0-15.5); LYMPH # 1.7 x10^3/uL (1.0-4.8); LYMPH % 36 % (24-48); MEAN CORPUSCULAR HEMOGLOBIN 30 pg (25-35); MEAN CORPUSCULAR HGB CONC 34 g/dL (31-37); MEAN CORPUSCULAR VOLUME 88 fL (79-100); MONO # 0.2 x10^3/uL (0.0-1.1); MONO % 4 % (0-9); NEUT # 2.8 x10^3/uL (1.8-7.7); NEUT % 58 % (31-73); PLATELET COUNT 310 x10^3/uL (140-400); RED BLOOD COUNT 4.31 x10^6/uL (3.50-5.40); RED CELL DISTRIBUTION WIDTH 15.9 % (11.5-14.5); WHITE BLOOD COUNT 4.8 x10^3/uL (4.0-11.0)
[2020-11-23 15:45] LABS: ALBUMIN 3.8 g/dL (3.4-5.0); CALCIUM 8.7 mg/dL (8.5-10.1); CREATININE 0.9 mg/dL (0.6-1.0); GFR 61.9; POTASSIUM 4.2 mmol/L (3.5-5.1); TOTAL BILIRUBIN 0.3 mg/dL (0.2-1.0); TOTAL PROTEIN 7.6 g/dL (6.4-8.2)
[2020-11-23 15:47] LABS: CHOLESTEROL/HDL RATIO 5.1
[2020-11-23 15:50] LABS: FREE T4 1.04 ng/dL (0.76-1.46); THYROID STIM HORMONE (TSH) 1.841 uIU/mL (0.358-3.74)
== END ==
LOC: LAB 14:50
PROVIDERS: ATTEND Pediatrics
DX: E78.2 Mixed hyperlipidemia (principal)
CPT/HCPCS: 36415; 80053; 80061; 84439; 84443; 85025